=== PATIENT | female | born 1975 | race African-American/Black ===

== ENCOUNTER 2017-05-18 17:10 | Inpatient (IN) | payer OTHER ==
--- NOTE | ~2017-05-18 | CO ---
Unit #: [id number] #: [id number] Patient: MOSES EISENBERG [id number] [place] [address] [id number] MR#: [id number] NAME: MOSES EISENBERG ROOM: [facility] Age: 41 Sex: F Admission Date: 05/18/2017 : 1975 Attending Physician: Melina Hudson M.D. Consultation Date: 05/20/2017 CONSULTATION REPORT HISTORY OF PRESENT ILLNESS Moses reports kidney pain with decreased urination. She reports that her last urination was yesterday at 8:00 p.m. and she also is having some left-sided back pain that started this morning. She denies any blood in her urine, but she is currently menstruating. No odor in her urine. She has no other complaints. Rand reports taking Tylenol, but did not receive any relief and reports that she only will get relief if she receives narcotic pain medication. PHYSICAL EXAMINATION CARDIAC: Regular rate and rhythm. No murmurs, gallops, or rubs. RESPIRATORY: Clear to auscultation bilaterally. ABDOMEN: Bowel sounds positive in all 4 quadrants. No abdominal tenderness to palpation. No CVA tenderness or flank pain. ASSESSMENT AND PLAN Flank pain. We will decrease urination. We will begin ibuprofen 400 mg p.o. q.6 hours p.r.n. pain. Also, please walk to the bathroom and monitor I's and O's. Notify if she does have decreased urine output. At this time, we are not giving any narcotics for her pain. Please notify if symptoms are unresolved. The patient was encouraged to drink p.o. fluids. Dictated by... Giovanny AguilarRPérez. for Joaquin Michaels/debra TD: 05/22/2017 22:37 JOB #: [id number] CONSULTATION REPORT Page 1 of 1 X JENNIFER WIN APRN X CONSULTATION REPORT
--- NOTE | ~2017-05-18 | PA ---
Unit #: [id number] #: [id number] Patient: AXEL EISENBERG [id number] [facility] [address] [place] [address] [id number] I MR#: [id number] NAME: AXEL EISENBERG ROOM: [facility] Age: 41 Sex: F Admission Date: 05/18/2017 : 1975 Date of Assessment: 05/17/2017 Attending Physician: Melina Hudson M.D. Admitting Physician: Melina Hudson M.D. Primary Care Physician: Primary Care Physician No PSYCHIATRIC ASSESSMENT DATE OF SERVICE 05/19/2017. IDENTIFYING DATA Ms. Eisenberg is a 41-year-old single female, who is a resident of [place], [place], and was transferred to us on a 72 hours hold from [facility]. CHIEF COMPLAINT "Suicide attempt." HISTORY OF PRESENT ILLNESS Ms. Eisenberg is a 41-year-old female with dual diagnosis of substance abuse and mood disorder, who is very well known to us from previous multiple encounters and usually maintains a very negative attitude towards treatment as she comes into the hospital repeatedly and then does not invest much into treatment and does not follow up with any treatment recommendation outside of the hospital and relapses soon afterwards, and then brings herself back to the hospital. She was taken to [facility] and then transferred to us on a 72 hours hold as the patient reported that she was suicidal and that she attempted suicide a couple of days ago on the [facility] bus and reports taking Percocet and heroin as an overdose and had to receive Narcan in the emergency room and reports that this was a suicide attempt and that she was still endorsing suicidal ideation with plan to overdose on her medication, but then refusing to come to the hospital which appears to be typical of her manipulative behavior. She also reports that she has attempted suicide in the past and the last time was about a month ago by overdose and by cutting her wrist and then she attempted again a couple of days ago while she was on the local bus and tried to overdose in a suicide attempt and as such, she was seen to be a threat to herself and therefore, recommendation for inpatient level of care for safety and stabilization was made and the patient was transferred to us. SUBSTANCE ABUSE HISTORY The patient reports history of opioid abuse and dependence, reporting that she has been using opioids in one form or the other for the last 20 years and now it has escalated from Percocet to heroin and she has been snorting heroin on regular basis. PAST PSYCHIATRIC HISTORY The patient has had history of multiple inpatient psychiatric and chemical dependency treatments at [facility] and has been diagnosed and Unit #: [id number] #: [id number] Patient: AXEL EISENBERG treated for mood disorder more on the line of bipolar. Review of the medical records indicate that she is supposed to be on a combination of lithium, Seroquel, and Risperdal, but does not appear to be taking medications on regular basis. PAST MEDICAL HISTORY The patient's medical history is significant for COPD, hepatitis C, and hypertension. ALLERGIES Mirtazapine, trazodone, vancomycin, [place]. PERSONAL AND SOCIAL HISTORY A 41-year-old female, who reports that she is single, unemployed, and homeless and has poor social support system. MENTAL STATUS EXAMINATION Middle-aged female who was casually dressed with fair personal hygiene, appears to be in no acute distress or discomfort. She was awake and alert on interaction with intact orientation to time, place, and person. Her mood was anxious and depressed with a congruent affect. Her speech was slow and restricted in content. Her thought processes were disorganized with some looseness of associations. Her insight and judgment remain significantly impaired. DIAGNOSTIC IMPRESSION Psychiatric: Bipolar disorder, most recent episode depressed, recurrent, moderate, without psychotic features; opioid dependence, moderate. Medical: Hepatitis C, chronic obstructive pulmonary disease. Stressors: Moderate psychosocial stressors. TREATMENT PLAN 1. The patient has presented with history of substance abuse and mood disorder, and has been decompensating and will need inpatient hospitalization for detoxification, safety, and stabilization. We will start her back on her home medications. We will adjust the medications and monitor response. 2. Supportive therapy was provided to the patient. 3. Safe, structured, and nourishing environment will be provided. ESTIMATED LENGTH OF STAY 5 to 7 days. ABILITY TO HELP SELF Limited. WILLINGNESS TO HELP SELF The patient appears to be willing to help self. STRENGTHS 1. Communicative. 2. Cooperative. PROBLEMS 1. Chronic dysphoric symptoms. 2. Chronic chemical dependency. 3. Poor social support system. Unit #: [id number] #: [id number] Patient: ELGIN,AXEL DISCHARGE CRITERIA This will be contingent upon the patient's ability to go through detox without having any significant withdrawal symptoms and her ability to stay safe to herself, particularly after discharge from the hospital. Dictated by... Joaquin Bowles/debra TD: 05/19/2017 06:54 JOB #: [id number] PSYCHIATRIC ASSESSMENT Page 1 of 1 X Melina Hudson MD X PSYCHIATRIC ASSESSMENT
--- NOTE | ~2017-05-18 | PN ---
Unit #: [id number] #: [id number] Patient: AXEL EISENBERG [id number] [facility] [address] [place] [address] [id number] MR#: [id number] NAME: AXEL EISENBERG ROOM: [facility] Age: 41 Sex: F Admission Date: 05/18/2017 : 1975 Attending Physician: Melina Hudson M.D. Admitting Physician: Melina Hudson M.D. Primary Care Physician: Primary Care Physician Teresa MCKEON PROGRESS NOTES DATE 05/22/2017. DISCUSSION Ms. Eisenberg is a 41-year-old female with opioid dependence and mood disorder. She was seen today and chart was reviewed. The case was discussed with the staff. The patient has been exhibiting some attention seeking, manipulative behavior and wanting to go to the emergency room. She is wanting some opiates, stating that she is having flank pain and medical consultation was requested. Lab workup and urinalysis were requested. The patient refused any labs, even though she was stating that she was hurting and feels that her kidneys are getting infected, but then was refusing to get any labs, which once again indicates that she is just trying to go to the emergency room and get some pain medications after she is almost finishing up with the detox here. Her (1) were negative. She has exhibited manipulative behavior and remains at a poor prognosis. Dictated by... Melina Hudson M.D. IAA/gz TD: 05/23/2017 14:16 JOB #: [id number] [facility] PROGRESS NOTES Page 1 of 1 X Melina Hudson MD PROGRESS NOTE
--- NOTE | ~2017-05-18 | DS ---
Unit #: [id number] #: [id number] Patient: AXEL EISENBERG [id number] [facility] [address] [place] [address] [id number] MR#: [id number] NAME: AXEL EISENBERG ROOM: [facility] Age: 41 Sex: F Admission Date: 05/18/2017 : 1975 Discharge Date: 05/23/2017 Attending Physician: Melina Hudson M.D. Primary Care Physician: Primary Care Physician No DISCHARGE SUMMARY IDENTIFYING DATA Ms. Eisenberg is a 41-year-old, single, female, who is a resident of [place], [place], and was transferred to us on a 72 hours hold from [facility]. DISCHARGE DIAGNOSES Psychiatric: Bipolar disorder, most recent episode depressed, recurrent, moderate, without psychotic features; opioid dependence, moderate and acute withdrawals. Medical: Hepatitis C, chronic obstructive pulmonary disease. Stressors: Moderate psychosocial stressors. HISTORY OF PRESENT ILLNESS Please see initial psychiatric evaluation for details. PAST PSYCHIATRIC HISTORY Please see initial psychiatric evaluation for details. PAST MEDICAL HISTORY Please see initial psychiatric evaluation for details. HOSPITAL COURSE The patient [facility] and was oriented to the hospital environment. Routine p.r.n. medications were initiated, and she was started back on her home medications, particularly her lithium, Zoloft, and Depakote for bipolar and detox protocol was maintained and she was seen to be exhibiting very bizarre behavior with attention seeking, manipulating symptoms, wanting more and more medications and faking medical symptoms, wanting to go to the emergency room to get injections of pain medications and medical consultation was requested and she was asked to allow the blood workup to be done to rule out if she really needs to go to the emergency room and she was refusing the blood workup and was not seen to be in any acute distress that would warrant going to the emergency room. She then started faking seizures and will throw herself on the floor, acting like she was having seizures, so she can go to the emergency room and then will respond to ammonia capsule being given to her and with no postictal confusion; however, she appears to be poorly motivated towards treatment and was not meeting criteria for further chemical dependency or detox level of care and as such, it was decided that she will be discharged home and will continue treatment on an outpatient basis. Unit #: [id number] #: [id number] Patient: AXEL EISENBERG DISCHARGE MEDICATIONS Pickrell 300 mg b.i.d. for bipolar, Zoloft 100 mg a day for depression, Norvasc 5 mg a day for hypertension, Coreg 6.25 mg b.i.d. for coronary artery disease, Catapres 0.1 mg b.i.d. for hypertension, Depakote 1000 mg b.i.d. for bipolar, Singulair 10 mg at bedtime for allergies, Protonix 40 mg a day for acid reflux, Symbicort 2 puffs b.i.d. for asthma, Lovenox 40 mg a day for . DISCHARGE CONDITION Stable. PROGNOSIS Fair. Dictated by... Joaquin Bowles/debra TD: 05/23/2017 06:45 JOB #: [id number] DISCHARGE SUMMARY Page 1 of 1 X Melina Hudson MD X DISCHARGE SUMMARY
--- NOTE | ~2017-05-18 | CO ---
Unit #: [id number] #: [id number] Patient: AXEL EISENBERG [id number] [facility] [address] [place] [address] [id number] MR#: [id number] NAME: AXEL EISENBERG ROOM: [facility] Age: 41 Sex: F Admission Date: 05/18/2017 : 1975 Attending Physician: Melina Hudson M.D. Primary Care Physician: Primary Care Physician No CONSULTATION REPORT REASON FOR CONSULT Patient complaint of decreased urine output and decreased p.o. intake. SUBJECTIVE "I'm here because of drug issues and I'm having a lot of pain and they won't give me any drugs, so no you're not going to do any blood work or check my urine. I'll wait until I'm done here and then I will go to the hospital." OBJECTIVE Vital signs within normal limits. So far today, it has been documented that patient has taken in 240 ml of fluids, very minimal urine output. No lab reports on chart as of yet. Patient declines to give urine sample and refuses blood draw, refuses straight cath. ASSESSMENT 1. Potential dehydration. 2. Potential urinary tract infection. 3. Potential acute renal failure. PLAN Patient is noncompliant, refuses evaluation, refuses diagnostics unless she receives pain medication. Will discuss with Dr. Hudson. Dictated by... Dunia Zamora/yissel TD: 05/21/2017 17:29 JOB #: [id number] Unit #: [id number] #: [id number] Patient: AXEL EISENBERG CONSULTATION REPORT Page 1 of 1 X Christine Hernandez APR X CONSULTATION REPORT
--- NOTE | ~2017-05-18 | PN ---
Unit #: [id number] #: [id number] Patient: AXEL EISENBERG [id number] [facility] [address] [place] [address] [id number] I MR#: [id number] NAME: AXEL EISENBERG ROOM: [facility] Age: 41 Sex: F Admission Date: 05/18/2017 : 1975 Attending Physician: Melina Hudson M.D. Admitting Physician: Melina Hudson M.D. Primary Care Physician: Primary Care Physician Teresa MCKEON PROGRESS NOTES DATE 05/20/2017 DISCUSSION Ms. Eisenberg is a 41-year-old female who was seen today and chart was reviewed and case was discussed with the staff. She reports not feeling good and has been reporting persistent depression and anxiety as well as auditory hallucinations which she states are very bad and bothering her even though he has been starting back on her Seroquel which is 800 mg. However, she has not been able to show a therapeutic response and no tolerability issues have been noted. MENTAL STATUS EXAMINATION Middle-aged female who was casually dressed with fair personal hygiene and appears to be in no acute distress or discomfort. She was awake and alert with impaired attention and concentration. Her mood was anxious and depressed with congruent affect. Her speech is slow and restricted in content. Her thought processes were disorganized with some looseness of associations, paranoid ideations, suicidal ideation and auditory hallucinations. Her insight and judgement remains significantly impaired. TREATMENT PLAN 1. Will continue on current medications and treatment protocol. Will monitor her response to the medications and make further adjustments as needed. 2. Will continue to follow up. Dictated by... Joaquin Bowles/yissel TD: 05/20/2017 23:25 JOB #: [id number] Unit #: [id number] #: [id number] Patient: AXEL EISENBERG PROGRESS NOTES Page 1 of 1 X Melina Hudson MD PROGRESS NOTE
--- NOTE | ~2017-05-18 | HP ---
Unit #: [id number] #: [id number] Patient: MOSES EISENBERG [id number] [place] [address] [id number] I MR#: [id number] NAME: MOSES EISENBERG ROOM: [facility] Age: 41 Sex: F Admission Date: 05/18/2017 : 1975 Attending Physician: Melina Hudson M.D. Admitting Physician: Melina Hudson M.D. Primary Care Physician: Primary Care Physician No HISTORY AND PHYSICAL HISTORY AND PHYSICAL COMPLETED 05/19/2017 HISTORY OF PRESENT ILLNESS Moses is a 41-year-old female, admitted on 05/18/2017 to [facility], for detox from heroin and recent overdose. PAST MEDICAL HISTORY 1. Hepatitis C. 2. Chronic obstructive pulmonary disease. 3. Hypertension. 4. Withdrawal seizures. PAST SURGICAL HISTORY Bilateral tubal ligation and appendectomy. SOCIAL HISTORY She smokes one pack of cigarettes daily, denies alcohol use, does report daily use of IV heroin. FAMILY HISTORY Noncontributory. REVIEW OF SYSTEMS CONSTITUTIONAL: No fever or chills. HEENT: Denies any sore throat, ear pain or runny nose. CARDIOVASCULAR: Denies chest pain, irregular heart rhythm or palpitations. CHEST: Denies shortness of breath or cough. No hemoptysis. GASTROINTESTINAL: Denies nausea, vomiting, diarrhea or chronic constipation. ENDOCRINE: Denies history of increased thirst or urination. No recent significant weight loss or gain. GENITOURINARY: Denies dysuria, frequency, or hematuria. SKIN: Denies any rashes. HEMATOLOGIC: Denies history of increased bleeding or bruising. MUSCULOSKELETAL: Denies any hot, swollen joints. No generalized muscle pain. NEUROLOGIC: Denies problems with vision or speech. No frequent, severe headaches. No numbness, tingling or weakness in any extremities. Denies loss of bladder or bowel control. CURRENT MEDICATIONS 1. Neurontin Unit #: [id number] #: [id number] Patient: MOSES EISENBERG 2. Norrie 3. Risperdal 4. Seroquel 5. Zoloft 6. Tramadol 7. Albuterol inhaler ALLERGIES Trazodone, mirtazapine, vancomycin, [place]. PHYSICAL EXAMINATION GENERAL: Alert, oriented, in no acute distress. VITAL SIGNS: Blood pressure 153/95, heart rate 87, temperature 98.7. HEIGHT: 5 feet 4 inches. WEIGHT: 150 pounds. SKIN: Warm and dry without rash or lesion. HEENT: Normocephalic. TMs not viewed. Oral and nasal passages clear. Conjunctivae clear. PERRLA. EOMs intact. NECK: Supple without lymphadenopathy or thyromegaly. HEART: Regular rate and rhythm without murmur. LUNGS: Clear. ABDOMEN: Soft, nontender. : Not done. EXTREMITIES: No evidence of cyanosis, clubbing or edema. Moves all without focal deficit. NEUROLOGICAL: Grossly within normal limits. Cranial Nerves: II: Visual beck are intact. III, IV AND : Extraocular movements are intact. Pupils are equal, round and reactive to light. V: Facial sensation is grossly normal. VII: Facial movements and expression are normal. VIII: Auditory acuity grossly intact. IX, X: Uvula is midline. Phonation is normal. XI: Patient shrugs shoulders and turns head normally. XII: Tongue protrudes in the midline. Sensory and Motor Function: Sensory and motor sensation is grossly normal. Motor: moves all extremities well. Coordination: Gait is normal. Deep Tendon Reflexes: Intact. IMPRESSION 1. Psychiatric admission. 2. Hepatitis C. 3. Chronic obstructive pulmonary disease. 4. Hypertension. 5. Withdraw seizures. RECOMMENDATIONS Psychiatric, per psychiatrist. MEDICAL No contraindications to participating in facility's activities. MEDICAL PROGNOSIS Good. MEDICAL CONDITION Stable. Unit #: [id number] #: [id number] Patient: MOSES EISENBERG Dictated by..Dunia Mehta/marbella TD: 05/20/2017 05:54 JOB #: [id number] HISTORY AND PHYSICAL Page 1 of 1 X JENNIFER WIN APRN HISTORY AND PHYSICAL
--- NOTE | ~2017-05-18 | PN ---
Unit #: [id number] #: [id number] Patient: AXEL EISENBERG [id number] [facility] [address] [place] [address] [id number] I MR#: [id number] NAME: AXEL EISENBERG ROOM: [facility] Age: 41 Sex: F Admission Date: 05/18/2017 : 1975 Attending Physician: Melina Hudson M.D. Admitting Physician: Melina Hudson M.D. Primary Care Physician: Primary Care Physician Teresa MUNIZ NOTES DATE 05/21/2017 DISCUSSION Miss Eisenberg is a 41-year-old Azerbaijani female with mood disorder and substance abuse, who was seen today and chart was reviewed and case was discussed with the staff. She remains anxious, withdrawn, depressed and rather seclusive to herself was not feeling good and has been expressing auditory hallucinations has been taking medication and tolerating them fairly well with no reported side effects. MENTAL STATUS EXAMINATION Middle-aged female who was casually dressed with fair personal hygiene, appears to be in no acute distress or discomfort. She was awake and alert on interaction with intact orientation. Her mood was anxious and depressed with congruent affect. Her speech was slow and restricted to content. She reports having suicidal ideation as well as auditory hallucinations. Her insight and judgement remains significantly impaired. TREATMENT PLAN 1. We will continue her on her current medications and treatment protocol. We will monitor her response and make further adjustments as needed. 2. We will continue to follow up. Dictated by... Joaquin Bowles/alfred TD: 05/23/2017 04:43 JOB #: [id number] Unit #: [id number] #: [id number] Patient: AXEL EISENBERG PROGRESS NOTES Page 1 of 1 X Tristan,Melina Mcfarlane MD X PROGRESS NOTE
[2017-05-22 12:06] LABS: URINE APPEARANCE CLEAR; URINE BILIRUBIN NEG (NEG); URINE BLOOD 3+ (NEG); URINE COLOR YELLOW; URINE GLUCOSE NEG (NEG); URINE KETONE NEG (NEG); URINE LEUKOCYTE ESTERASE TRACE (NEG); URINE NITRATE NEG (NEG); URINE PROTEIN NEG (NEG)
[2017-05-22 12:08] LABS: U HYALINE CASTS AUWI 0-2 /[LPF]; URINE BACTERIA AUWI 1+ (NEGATIVE); URINE SQUAMOUS EPITHELIAL CELL FEW /[HPF]
== END 2017-05-23 11:09 | DRG 885 ==
LOC: P1E 20:40
PROVIDERS: Psychiatry & Neurology Psychiatry
PROC: HZ2ZZZZ Detoxification Services for Substance Abuse Treatment (ICD-10-PCS; principal; 2017-05-18)
DX: F31.32 Bipolar disorder, current episode depressed, moderate (principal); N17.9 Acute kidney failure, unspecified; N39.0 Urinary tract infection, site not specified; F11.20 Opioid dependence, uncomplicated; F39 Unspecified mood [affective] disorder; F19.10 Other psychoactive substance abuse, uncomplicated; B19.20 Unspecified viral hepatitis C without hepatic coma; J44.9 Chronic obstructive pulmonary disease, unspecified; I10 Essential (primary) hypertension; F17.210 Nicotine dependence, cigarettes, uncomplicated; E86.0 Dehydration; R10.9 Unspecified abdominal pain; I25.10 Atherosclerotic heart disease of native coronary artery without angina pectoris; J45.909 Unspecified asthma, uncomplicated; K21.9 Gastro-esophageal reflux disease without esophagitis
CPT/HCPCS: 81003; 82947; J1650